=== PATIENT | male | born 1995 | race Caucasian/White ===

== ENCOUNTER 2023-04-12 06:56 | Outpatient (CLI) | payer BC ==
--- NOTE | 2023-04-12 11:02 | Ultrasound Report ---
PROCEDURE: Abdomen Complete INDICATIONS: GASTRITIS TECHNIQUE: Real-time scanning was performed of the abdominal and retroperitoneal organs, with image documentatio n. COMPARISON: None. FINDINGS: Liver: Liver is normal in size and homogeneous in echotexture. Main portal vein is patent with hepa topedal flow. Gallbladder: No stones or sludge. Echogenic, nonmobile polyp with narrow neck and no internal vascula rity measuring 0.4 x 0.7 x 0.4 cm. No wall thickening or pericholecystic fluid. Biliary ducts: Intrahepatic bile ducts are non-dilated. Extrahepatic bile duct caliber measures 2 m m. Normal is 6-7 mm or less in diameter, or 10 mm or less post-cholecystectomy. Pancreas: Visualized portions of the pancreas are sonographically normal. Spleen: Spleen is normal in size and homogeneous in echotexture. Kidneys: Kidneys are normal in size and echotexture. Right kidney measures 10.9 cm long; left kidne y measures 11.1 cm long. No hydronephrosis or nephrolithiasis. No solid masses on the provided imag es. No complex renal cystic lesions which require follow-up. Aorta: Visualized aorta is normal in caliber at less than 3 cm. Proximal aorta measures 1.7 cm, mid aorta 1.4 cm and distal aorta 1.6 cm. Iliacs: Proximal common iliac arteries are normal in caliber at less than 2.5 cm. Right common iliac measures 1 cm and left common iliac measures 0.9 cm. IVC: Intrahepatic inferior vena cava is patent. Miscellaneous: No free abdominal fluid. IMPRESSION: 1. Gallbladder polyp measuring 0.4 x 0.7 x 0.4 cm. No gallbladder wall thickening. Recommend ultrasou nd follow-up in 1 year. 2. Remainder of the exam is unremarkable. Reviewed by: Carlee Proctor MD on 04/12/2023 11:00 AM PDT Approved by: Carlee Proctor MD on 04/12/2023 11:00 AM PDT Station ID: [id number]
== END 2023-04-12 06:57 | disposition home or self-care (01) ==
LOC: DI 06:56
PROVIDERS: ATTEND Internal Medicine
DX: K82.4 Cholesterolosis of gallbladder (principal)

== ENCOUNTER 2023-05-01 17:03 | Outpatient (CLI) | payer OTHER, BC ==
--- NOTE | 2023-05-02 14:50 | XRAY Report ---
PROCEDURE: Cervical Spine 2 View INDICATIONS: STRAIN OF MUSCLE, FASCIA AND TENDON AT NECK LEVEL TECHNIQUE: 2 view(s) of the cervical spine were acquired. COMPARISON: None. FINDINGS: Bones: No fractures or dislocations to the T1 level. The lateral masses of C1 appear intact on the odontoid view. No suspicious bony lesions. Soft tissues: No prevertebral soft tissue swelling. IMPRESSION: No acute abnormality of the cervical spine. Reviewed by: Andrea Smith on 05/02/2023 2:49 PM PDT Approved by: Andrea Smith on 05/02/2023 2:49 PM PDT Station ID: [id number]
--- NOTE | 2023-05-02 14:52 | XRAY Report ---
PROCEDURE: Thoracic Spine 2 View INDICATIONS: STRAIN OF MUSCLE, FACIA AND TENDON BACK OF CHEST WAS TECHNIQUE: 3 views of the thoracic spine were acquired. COMPARISON: None. FINDINGS: Bones: No fractures or dislocations. No suspicious bony lesions. 12 pairs of ribs are noted, and a ppear intact where visualized. Soft tissues: No paravertebral stripe thickening. IMPRESSION: No acute bony abnormality. No significant degenerative change. Reviewed by: Andrea Smith on 05/02/2023 2:50 PM PDT Approved by: Andrea Smith on 05/02/2023 2:50 PM PDT Station ID: [id number]
--- NOTE | 2023-05-02 15:00 | XRAY Report ---
PROCEDURE: Lumbar Spine 2 View INDICATIONS: STRAIN OF MUSCLE,FASCIA AND TENDON OF LOWER BACK TECHNIQUE: 3 views of the lumbar spine were acquired. COMPARISON: None. FINDINGS: Bones: 5 [id number] vertebrae are present. Mild leftward curvature with a Funez angle of 8 degre es, otherwise normal bony alignment. No vertebral body compression fractures. No suspicious bony le sions. Soft tissues: Overlying bowel gas pattern is normal. No suspicious soft tissue calcifications. IMPRESSION: No acute abnormality of the lumbar spine. Reviewed by: Andrea Smith on 05/02/2023 2:57 PM PDT Approved by: Andrea Smith on 05/02/2023 2:57 PM PDT Station ID: [id number]
== END 2023-05-01 17:04 | disposition home or self-care (01) ==
LOC: DI 17:03
PROVIDERS: ATTEND Family Medicine
DX: S16.1XXA Strain of muscle, fascia and tendon at neck level, initial encounter (principal); S29.012A Strain of muscle and tendon of back wall of thorax, initial encounter; S39.012A Strain of muscle, fascia and tendon of lower back, initial encounter

== ENCOUNTER 2023-07-11 17:39 | Outpatient (CLI) | payer BC ==
--- NOTE | 2023-07-12 09:03 | CT Report ---
PROCEDURE: Head WO INDICATIONS: HEADACHE TECHNIQUE: Noncontrast 4.5 mm thick angled axial sections acquired from the foramen magnum to the vertex. For r adiation dose reduction, the following was used: automated exposure control, adjustment of mA and/or kV according to patient size. COMPARISON: None. FINDINGS: Image quality: Excellent. CSF spaces: Basal cisterns are patent. No extra-axial fluid collections. Ventricles are normal in size and shape. Brain: No midline shift. No intracranial masses or hemorrhage. Luu-white matter interface is norm al. Skull and face: Calvarium and visualized facial bones are intact, without suspicious lesions. Sinuses: Visualized sinuses and mastoids are clear. IMPRESSION: No acute intracranial pathology. No cause for patient's symptoms is identified. Reviewed by: Ignacio Gamez MD on 07/12/2023 9:01 AM PST Approved by: Ignacio Gamez MD on 07/12/2023 9:01 AM PST Station ID: [id number]
== END 2023-07-11 17:40 | disposition home or self-care (01) ==
LOC: DI 17:39
PROVIDERS: ATTEND Internal Medicine
DX: G44.89 Other headache syndrome (principal)